=== PATIENT | female | born 1960 | race African-American/Black ===

== ENCOUNTER 2021-11-17 19:21 | Emergency (ER) | payer MEDICARE ==
[~2021-11-17] VITALS: Ht 167.6 cm; Wt 52.6 kg
[~2021-11-17 19:21] MED LIST: AMARYL2 MG PO; CARAFATE1 GM PO; CATAPRES0.1 MG PO; GLUCOTROL10 MG PO; LISINOPRIL40 MG PO; METOPROLOL TART50 MG PO; NEXIUM40 MG PO; PRILOSEC20 MG PO; PROCARDIA XL30 MG PO; SODIUM CHLORIDE FLUSH 10 ML SYR IV PRN
[2021-11-17] MEDS ORDERED: ONDANSETRON HCL INJ 2MG/ML 2ML 2 MG/ML VIAL IV STA (19:54)
[2021-11-17] MEDS ORDERED: SODIUM CHLORIDE 0.9% 1000ML 1,000 ML IV ONE (20:00)
[2021-11-17] MEDS ORDERED: METOCLOPRAMIDE HCL 10 MG/2ML VIAL IV ONE (20:00)
[2021-11-17 20:16] LABS: BASOPHILS # (AUTO) 0.1 (0.0-0.1); BASOPHILS % 0.6 % (0.0-1.0); EOSINOPHILS # (AUTO) 0.1 (0.0-0.4); EOSINOPHILS % 0.6 % (0.0-6.0); HEMATOCRIT 36.6 % (34.2-44.1); LYMPHOCYTES # (AUTO) 2.7 (1.0-3.2); LYMPHOCYTES % 33.7 % (18.0-39.1); MEAN CORPUSCULAR HEMOGLOBIN 28.8 pg (28-32); MEAN CORPUSCULAR HGB CONC 32.8 g/dL (31-35); MONOCYTES # (AUTO) 0.6 (0.2-0.8); MONOCYTES % 7.6 % (4.4-11.3); NEUTROPHILS # (AUTO) 4.6 (2.1-6.9); NEUTROPHILS % 57.1 % (38.7-80.0); PLATELET COUNT 288 x10e3/uL (140-360); RED BLOOD COUNT 4.16 x10e6/uL (3.6-5.1); RED CELL DISTRIBUTION WIDTH 14.9 % (11.7-14.4)
[2021-11-17 20:18] LABS: CLARITY,URINE SL CLOUDY (CLEAR); COLOR,URINE YELLOW (YELLOW); KETONES,URINE NEGATIVE (NEGATIVE); LEUKOCYTE ESTERASE ,URINE NEGATIVE (NEGATIVE); NITRITE,URINE NEGATIVE (NEGATIVE); PROTEIN,URINE DIPSTICK >=300 (NEGATIVE); URINE UROBILINOGEN 0.2 mg/dL (0.2 - 1)
[2021-11-17] MEDS ORDERED: METOCLOPRAMIDE HCL 10 MG/2ML VIAL ONE (20:19)
[2021-11-17] MEDS ORDERED: ONDANSETRON HCL INJ 2MG/ML 2ML 2 MG/ML VIAL ONE (20:19)
[2021-11-17 20:29] LABS: AMORPHOUS SEDIMENT,URINE MODERATE (FEW); BACTERIA,URINE MODERATE /HPF; EPITHELIAL CELLS,URINE MODERATE /LPF
[2021-11-17 20:35] LABS: ALBUMIN 3.8 g/dL (3.5-5.0); ANION GAP 15.2 mmol/L (8-16); CREATININE, SERUM 1.21 mg/dL (0.57-1.11); POTASSIUM 4.2 mmol/L (3.5-5.1)
[2021-11-17] MEDS ORDERED: REGLAN10 MG PO (21:17)
[2021-11-17] MEDS ORDERED: CEFDINIR300 MG PO (21:17)
[2021-11-17 21:39] VITALS: BP 168/96
== END 2021-11-17 21:40 | disposition home or self-care (01) ==
LOC: ER 19:31
DX: R11.2 Nausea with vomiting, unspecified (principal); N39.0 Urinary tract infection, site not specified; M54.50 Low back pain, unspecified; E11.65 Type 2 diabetes mellitus with hyperglycemia; I10 Essential (primary) hypertension; Z80.8 Family history of malignant neoplasm of other organs or systems; F17.210 Nicotine dependence, cigarettes, uncomplicated
CPT/HCPCS: 36415; 80053; 81001; 85025; 99283; J2405; J2765; J7030

== ENCOUNTER → 2024-02-03 | Outpatient (REF) | payer MEDICARE ==
[~2024-02-03] MED LIST changes: +CEFDINIR300 MG PO; +REGLAN10 MG PO; -SODIUM CHLORIDE FLUSH 10 ML SYR IV PRN
== END ==
LOC: US 14:47
PROVIDERS: ATTEND Internal Medicine Nephrology
DX: N18.4 Chronic kidney disease, stage 4 (severe) (principal)
CPT/HCPCS: 76770; 76857